=== PATIENT | male | born 1955 | race Caucasian/White ===

== ENCOUNTER 2022-05-17 10:08 | Emergency (ER) | payer MEDICARE, MEDICAID, SELFPAY ==
[2022-05-17] VITALS (14 sets, daily range): BP systolic 163–165; BP diastolic 85–103; PULSE 85–115; RESP 19–27; TEMP 36.4; O2SAT 94–98
--- NOTE | ~2022-05-17 | XR_ITS ---
EXAMINATION: XR chest 2V DATE: 05/17/2022 10:52 INDICATION: Shortness of breath TECHNIQUE: AP and lateral views of the chest are obtained. COMPARISON: None available FINDINGS: There are minimal airspace opacities of the lung bases. No pleural effusion or pneumothorax . The heart size is normal. There is mild thoracic spondylosis. Median sternotomy wires and mediastin al surgical clips are seen, likely from prior coronary artery bypass grafting. IMPRESSION: 1. Minimal airspace opacities of the lung bases, consistent with atelectasis versus pneumonia. Reviewed, dictated and finalized at location [facility] IMPRESSION: 1. Minimal airspace opacities of the lung bases, consistent with atelectasis ve rsus pneumonia.
--- NOTE | 2022-05-17 10:30 | ED.GENADULT ---
HPI - General Adult General Chief complaint: Shortness of Breath/Dyspnea Stated complaint: SOB Time Seen by Provider: 05/17/22 10:13 History of Present Illness HPI narrative: 66-year-old male smoker with history of CABG presenting to the emergency department for evaluation of worsening cough and congestion. Patient states that symptoms started few days ago but his cough and congestion has worsened over the night. Patient does report body aches fatigue cough and congestion. Patient denies any associated chest pain. Patient denies any nausea vomiting or diarrhea. Patient was vaccinated against COVID but not influenza. Patient reports a previous CABG Related Data Allergies Allergy/AdvReac Type Severity Reaction Status Date / Time No Known Allergies Allergy Verified 05/17/22 10:32 Review of Systems Review of Systems: CONSTITUTIONAL: See HPI EYES: Denies visual changes, redness, or discharge. ENT: Denies rhinorrhea, congestion, sore throat, or otalgia. CARDIOVASCULAR: Denies chest pain, palpitations, or edema. RESPIRATORY: See HPI GASTROINTESTINAL: Denies abdominal pain, nausea, vomiting, or diarrhea. GENITOURINARY: Denies dysuria or hematuria. SKIN: Denies rash or itching. MUSCULOSKELETAL: Denies back pain, joint pain, or myalgia. NEUROLOGIC: Denies headache, numbness, or weakness. Exam Narrative: APPEARANCE: Well appearing, no pain, no distress, well-nourished. HEAD: normocephalic, atraumatic. EYES: PERRLA/EOMI, conjunctivae clear. NOSE: Normal no drainage EARS:TMS clear with good light reflex. THROAT: Pharynx clear, no exudate. NECK: Supple. No adenopathy, no masses. RESPIRATORY: Cough with congestion, rhonchi in lower lung [place] CARDIOVASCULAR: Regular rate and rhythm without murmurs rubs or gallops. ABDOMINAL: Soft, nontender, nondistended, normal bowel sounds MUSCULOSKELETAL: Moves all extremities. Strength/ROM intact, No edema, No calf tenderness. NEURO: Alert. Cranial nerves II through XII intact. Grossly intact Course Course Emergency Course: Patient did feel improved with a breathing treatment. Patient is afebrile with no leukocytosis patient's CMP is similar to his baseline. Patient was influenza A positive. Patient was provided Tamiflu. Patient was comfortable with the plan for discharge and close follow-up. Patient was educated on reasons to return to the emergency room. Vital Signs Vital signs: Vital Signs Pulse Rate 103 H 05/17/22 10:21 Respiratory Rate 22 H 05/17/22 10:21 Temperature 97.6 F 05/17/22 10:29 Pulse Rate 115 H 05/17/22 12:15 Respiratory Rate 22 H 05/17/22 12:15 Blood Pressure 164/85 H 05/17/22 11:16 Pulse Oximetry 98 05/17/22 12:15 Oxygen Delivery Room Air 05/17/22 10:29 Medical Decision Making Vital Signs Vital Signs: Vital Signs Pulse Rate 103 H 05/17/22 10:21 Respiratory Rate 22 H 05/17/22 10:21 Temperature 97.6 F 05/17/22 10:29 Pulse Rate 115 H 05/17/22 12:15 Respiratory Rate 22 H 05/17/22 12:15 Blood Pressure 164/85 H 05/17/22 11:16 Pulse Oximetry 98 05/17/22 12:15 Oxygen Delivery Room Air 05/17/22 10:29 Lab Data Lab results reviewed: Yes I reviewed the patient's lab results. 05/17/22 10:33 05/17/22 10:33 Labs: Lab Results 05/17/22 05/17/22 05/17/22 Range/Units 10:33 10:33 10:33 WBC 6.6 (4.5-10.0) K/mm3 RBC 5.27 (4.6-6.20) M/mm3 Hgb 15.8 (14.0-18.0) g/dL Hct 48.1 (42.0-52.0) % MCV 91.3 (80-100) fl MCH 30.0 (26-34) pg MCHC 32.8 (32-36) g/dl RDW 15.4 H (11.5-14.5) % Plt Count 181 (150-375) k/mm3 MPV 8.8 (7.4-10.4) fl Immature Gran % (Auto) 0.6 H (0-0.5) % Neut % (Auto) 68.2 (45.5-73.1) % Lymph % (Auto) 13.0 L (18.3-44.2) % [place] % (Auto) 17.4 H (2.6-8.5) % Eos % (Auto) 0.2 (0-4.4) % Baso % (Auto) 0.6 (0.2-1.2) % Lymph # (Auto) 0.86 L (0.9-3.2) K/mm3 [place] # (Auto) 1.2 H (0.1-0.6)
[2022-05-17 10:42] LABS: Basophils Percent Auto 0.6 % (0.2-1.2); Eosinophils Percent Auto 0.2 % (0-4.4); Hematocrit 48.1 % (42.0-52.0); Hemoglobin 15.8 g/dL (14.0-18.0); Immature Granulocyte Absolute 0.04 K/mm3 (0.00-0.031); Immature Granulocyte Percent A 0.6 % (0-0.5); Lymphocytes Absolute Auto 0.86 K/mm3 (0.9-3.2); Mean Corpuscular HGB Conc 32.8 g/dl (32-36); Mean Corpuscular Volume 91.3 fl (80-100); Mean Platelet Volume 8.8 fl (7.4-10.4); Monocytes Absolute Auto 1.2 K/mm3 (0.1-0.6); Monocytes Percent Auto 17.4 % (2.6-8.5); Neutrophils Absolute Auto 4.5 K/mm3 (1.3-6.7); Neutrophils Percent Auto 68.2 % (45.5-73.1); Platelet Count Result 181 k/mm3 (150-375); Red Blood Count 5.27 M/mm3 (4.6-6.20); Red Cell Distribution Width 15.4 % (11.5-14.5); White Blood Count 6.6 K/mm3 (4.5-10.0)
[2022-05-17] MEDS: ALBUTEROL SULFATE NEB 2.5 MG/3 ML INH 5 MG INHALATION ×3 (11:01→11:57)
[2022-05-17 11:03] LABS: Alanine Aminotransferase 96 U/L (6-50); Albumin Level 4.5 g/dL (3.5-5.1); Alkaline Phosphatase 83 U/L (38-126); Anion Gap 9 mmol/L (8-16); Aspartate Amino Transferase 157 U/L (17-59); Bilirubin,Total 0.8 mg/dL (0.2-1.3); Blood Urea Nitrogen 19 mg/dL (9-20); Calcium 8.5 mg/dL (8.4-10.2); Carbon Dioxide 29 mmol/L (22-30); Chloride 93 mmol/L (98-107); Estimated CRCL calculation 68 ml/min; Estimated Glomerular Filt Rate 60; Glucose 124 mg/dL (65-110); Potassium 4.1 mmol/L (3.4-5.0); Sodium 131 mmol/L (137-145)
[2022-05-17 11:19] LABS: Influenza A QL RT-PCR Positive (Negative); Influenza B QL RT-PCR Negative (Negative); RSV RNA, RT-PCR Negative (Negative); SARS-CoV-2 RNA PCR Negative
[2022-05-17] MEDS: OSELTAMIVIR PHOSPHATE 75 MG CAPSULE PO (12:30)
== END 2022-05-17 12:49 | disposition home or self-care (01) ==
PROVIDERS: Emergency Provider Emergency Medicine
DX: J10.1 Influenza due to other identified influenza virus with other respiratory manifestations (principal); Z95.1 Presence of aortocoronary bypass graft; Z20.822 Contact with and (suspected) exposure to COVID-19
CPT/HCPCS: 36415; 71046; 80053; 85025; 87637; 94640; 99283; A9270